=== PATIENT | female | born 1940 | race Caucasian/White ===

== ENCOUNTER → 2018-06-09 | Outpatient (CLI) | payer MEDICARE, OTHER ==
[~2018-06-09] MED LIST: ADULT LOW DOSE81 MG PO; ATENOLOL 100MG100 M2 PO; ATENOLOL 50 MG50 M1 PO; BYETTA PEN 51 PENIN1 SQ; CELEBREX 200 M200 MG; CELEBREX 200 M200 MG PO; COLACE1 EAC1; DIOVAN320 MG PO; GLUCOPHAGE1000 MG PO; GLUCOPHAGE1000 MG SQ; HUMALOG100 UNIT/1 SQ; LANTUS SC; LANTUS SQ; LISINOPRIL-HCT1 EAC1 PO; MIRALAX255 GM; MULTIVITAMINS PO; NATEGLINIDE PO; NEURONTIN 300300 M1; OMEPRAZOLE20 M2 PO; OXYCONTIN10 M1; OXYIR5 MG; PRILOSEC 20 MG20 MG PO; REGLAN 10 MG TA10 MG; SIMVASTATIN40 MG PO; TRAMADOL 50 MG50 MG; XARELTO10 MG; ZESTORETIC 20-1 EAC3 PO; ZOFRAN4 MG
[2018-06-09 10:48] LABS: ABSOLUTE BASOPHILS 0.1 thou/uL (0.0-0.2); ABSOLUTE EOSINOPHILS 0.2 thou/uL (0.0-0.7); ABSOLUTE LYMPHOCYTES 2.3 thou/uL (0.8-5.3); ABSOLUTE NEUTROPHILS 8.3 thou/uL (1.6-8.1); BASOPHILS 0.9 %; EOSINOPHILS 1.3 %; HEMATOCRIT 37.1 % (37.0-47.0); HEMOGLOBIN 12.3 gm/dL (12.0-15.0); LYMPHOCYTES 19.2 %; MCH 28.2 pg (26.0-34.0); MCHC 33.3 g/dL (28.0-37.0); MCV 84.8 fL (80.0-100.0); MONOCYTES 8.3 %; NUCLEATED RBCS 0 /100WBC; PLATELET COUNT* 291 thou/uL (150-400); POLYS 70.3 %; RBC 4.37 mil/uL (4.20-5.00); RDW-CV 14.7 % (10.5-14.5); WBC 11.8 thou/uL (4.0-11.0)
[2018-06-09 11:08] LABS: ALBUMIN 3.8 g/dL (3.4-5.0); CALCIUM 9.1 mg/dL (8.5-10.1); CREATININE 1.3 mg/dL (0.6-1.3); DIRECT BILIRUBIN 0.2 mg/dL (<0.1-0.3); MAGNESIUM 1.2 mg/dL (1.8-2.4); TOTAL BILIRUBIN 0.4 mg/dL (<0.1-1.0)
== END ==
LOC: M.CT 10:24 → M.LAB 10:30 → M.CT 11:00
PROVIDERS: Internal Medicine
DX: K76.0 Fatty (change of) liver, not elsewhere classified (principal); I10 Essential (primary) hypertension; K21.9 Gastro-esophageal reflux disease without esophagitis; M47.816 Spondylosis without myelopathy or radiculopathy, lumbar region; M48.061 Spinal stenosis, lumbar region without neurogenic claudication; E11.9 Type 2 diabetes mellitus without complications; Z90.49 Acquired absence of other specified parts of digestive tract; Z68.35 Body mass index [BMI] 35.0-35.9, adult

== ENCOUNTER → 2018-09-05 | Outpatient (CLI) | payer MEDICARE, OTHER | LOC: M.RAD 10:13 | DX: Z12.31 Encounter for screening mammogram for malignant neoplasm of breast (principal) ==

== ENCOUNTER → 2019-08-28 | Outpatient (CLI) | payer MEDICARE, OTHER | LOC: M.RAD 13:19 | DX: Z12.31 Encounter for screening mammogram for malignant neoplasm of breast (principal) ==

== ENCOUNTER 2020-05-14 09:53 | Inpatient (IN) | payer OTHER ==
[~2020-05-14] VITALS: Ht 162.6 cm; Wt 88.0 kg
[~2020-05-14 09:53] MED LIST changes: -CELEBREX 200 M200 MG; -CELEBREX 200 M200 MG PO; -NEURONTIN 300300 M1; -REGLAN 10 MG TA10 MG; +REGLAN 10 MG TA10 MG PO
[2020-05-14 10:00] VITALS: BP 207/80
[2020-05-14] MEDS ORDERED: PROTONIX40 M2 PO (10:07)
[2020-05-14] MEDS ORDERED: METFORMIN HCL500 MG PO (10:07)
[2020-05-14] MEDS ORDERED: LANTUS SUBQ (10:08)
[2020-05-14] MEDS ORDERED: TOPROL XL100 MG PO (10:08)
[2020-05-14] MEDS ORDERED: SIMVASTATIN40 MG PO (10:08)
[2020-05-14] MEDS ORDERED: SUPER THERAVIT1 EACH PO (10:09)
[2020-05-14] MEDS ORDERED: VITAMIN B12 PO (10:09)
[2020-05-14] MEDS ORDERED: PHENERGAN 25 MG25 MG PO (10:09)
[2020-05-14] MEDS ORDERED: MEMANTINE HCL10 GM PO (10:10)
[2020-05-14] MEDS ORDERED: LISINOPRIL-HCT1 EAC2 PO (10:10)
[2020-05-14 10:24] LABS: ABSOLUTE BASOPHILS 0.1 thou/uL (0.0-0.2); ABSOLUTE EOSINOPHILS 0.1 thou/uL (0.0-0.7); ABSOLUTE LYMPHOCYTES 1.9 thou/uL (0.8-5.3); ABSOLUTE MONOCYTES 0.8 thou/uL (0.0-1.2); ABSOLUTE NEUTROPHILS 7.8 thou/uL (1.6-8.1); BASOPHILS 0.8 %; EOSINOPHILS 1.2 %; HEMATOCRIT 37.7 % (37.0-47.0); HEMOGLOBIN 12.7 gm/dL (12.0-15.0); LYMPHOCYTES 17.9 %; MCH 28.4 pg (26.0-34.0); MCHC 33.8 g/dL (28.0-37.0); MCV 84.1 fL (80.0-100.0); MONOCYTES 7.8 %; MPV 10.1 fl. (7.2-11.1); NUCLEATED RBCS 0 /100WBC; PLATELET COUNT* 258 thou/uL (150-400); POLYS 72.3 %; RBC 4.49 mil/uL (4.20-5.00); WBC 10.7 thou/uL (4.0-11.0)
[2020-05-14 10:29] LABS: CALCIUM 9.5 mg/dL (8.5-10.1); CREATININE 1.4 mg/dL (0.6-1.3); POTASSIUM 3.9 mmol/L (3.5-5.1)
[2020-05-14 10:33] LABS: ALBUMIN 3.9 g/dL (3.4-5.0); TOTAL BILIRUBIN 0.4 mg/dL (<0.1-1.0); TOTAL PROTEIN 8.4 g/dL (6.4-8.2)
[2020-05-14] MEDS ORDERED: MACROBID 100 M100 MG PO (10:36)
[2020-05-14 10:39] LABS: APTT 28.7 Seconds (25.0-31.3); PROTIME 10.7 Seconds (9.20-11.50)
--- NOTE | 2020-05-14 11:20 | NUR ---
JUVENCIO NOTIFIED UPON PT RETURN FROM CT. PT CONNECTED TO MONITOR AND O2
[2020-05-14 11:44] LABS: URINE BILIRUBIN NEGATIVE (Negative); URINE BLOOD NEGATIVE (Negative); URINE CLARITY CLEAR; URINE COLOR YELLOW; URINE GLUCOSE-RANDOM NEGATIVE (Negative); URINE KETONES NEGATIVE (Negative); URINE LEUKOCYTES-REFLEX TRACE (Negative); URINE NITRITE-REFLEX NEGATIVE (Negative); URINE PROTEIN TRACE (Negative); URINE SPECIFIC GRAVITY 1.015 (1.005-1.030); URINE UROBILINOGEN 0.2 E.U./dl (0.2-1.0)
[2020-05-14 11:50] LABS: SQUAMOUS >10 Many /LPF (0-3)
[2020-05-14 11:51] LABS: BACTERIA-REFLEX 1-9 Few /HPF (None Seen); CASTS None Seen /LPF (None Seen); CRYSTALS None Seen /LPF (None Seen); MUCUS 0-3 Light strn/LPF (None Seen); URINE RBC None Seen /HPF (0-2); URINE WBC-REFLEX 0-5 Rare /HPF (0-5)
--- NOTE | 2020-05-14 12:52 | NUR ---
PT GIVEN LUNCH TRAY WITH PERMISSION FROM DR. STEELE
[2020-05-14 13:47] LABS: CHOLESTEROL 233 mg/dL (<200); HDL CHOLESTEROL 46 mg/dL (>40); LDL CHOLESTEROL 159 mg/dL (<100); SERUM ASSESSMENT Clear; TC:HDL 5.1 Ratio (Not establshd); TRIGLYCERIDE 142 mg/dL (<150); VLDL 28 mg/dL (<40)
--- NOTE | 2020-05-14 13:54 | EKG ---
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1940 Requested By: Raman Martinez Order Number: [id number] MD: Arian Arizmendi Measurements Intervals [place] Rate: 70 P: 20 VA: 206 QRS: 1 QRSD: 108 T: 44 QT: 409 QTc: 442 Interpretive Statements Sinus rhythm Probable left ventricular hypertrophy Anterior Q waves, possibly due to LVH Artifact in lead(s) I,III,aVR,aVL,aVF and baseline wander in lead(s) II,aVR Compared to ECG 01/15/2015 13:46:03 Left ventricular hypertrophy now present Q waves now present Electronically Signed On 05-14-2020 13:54:07 CDT by Arian Arizmendi [email or web address] <ELECTRONICALLY SIGNED> By: Arian Arizmendi MD, [facility] 05/14/20 1354 1005 1005 Arian Arizmendi MD, [facility] /EPI
[2020-05-14 14:27] VITALS: BP 147/75
[2020-05-14 14:45] VITALS: BP 190/79
[2020-05-14 15:00] VITALS: BP 150/92
--- NOTE | 2020-05-14 15:00 | NUR ---
PT TO ROOM 207 VIA CART. PT UNABLE TO FOLLOW COMMANDS. PT DOES NOT ROUTINELY ANSWER YES AND NO QUESTIONS AND WILL RESPOND TO QUESTIONS WITH INAPPROPRIATE ANSWERS. AT BS. FALL PRECAUTIONS IN PLACE. BED ALARM ON. MRI RESULTS DISCUSSED WITH DR STOCK. ORDERS RECEIVED.
[2020-05-14] MEDS ORDERED: NAMENDA 10 MG T10 MG PO (15:56)
--- NOTE | 2020-05-14 17:26 | 2DMMODE ---
[place] [address] 2 D/M-MODE ECHOCARDIOGRAM Name: CHANTELLE BASSETT Room: [address] IN .Sally.#: [id number] Admission: 05/14/20 Attend Phys: Rosa La, Discharge: Date of : 38 Date of Service: 05/14/20 1725 Report #: [id number] THIS REPORT FOR: cc: Arian Huggins MD, David L. MD Blick, David R. MD [facility] ~ APPROVED REPORT Study performed: 05/14/2020 16:30:41 EXAM: Comprehensive 2D, Doppler, and color-flow Echocardiogram Patient Location: In-Patient Room #: 207 Status: routine BSA: 1.93 HR: 69 bpm BP: 152/60 mmHg Rhythm: NSR Other Information Study Quality: Good Indications CVA/TIA Echo Enhancing Agent Indication: Rule out Shunt Agent(s) / Amount(s) Used: Agitated Saline 10 cc 2D Dimensions IVSd: 12.28 (7-11mm) LVOT Diam: 20.00 (18-24mm) LVDd: 42.37 mm PWd: 9.54 (7-11mm) Ascending Ao: 34.07 (22-36mm) LVDs: 28.76 (25-40mm) Aortic Root: 29.60 mm Volumes Left Atrial Volume (Systole) LA ESV Index: 31.20 mL/m2 Aortic Valve AoV Peak Florentino.: 1.84 m/s AO Peak Gr.: 13.58 mmHg LVOT Max P.84 mmHg AO Mean Gr.: 7.28 mmHg LVOT Mean P.24 [place] [address] 2 D/M-MODE ECHOCARDIOGRAM Name: CHANTELLE BASSETT Room: [address] IN .R.#: [id number] Admission: 05/14/20 Attend Phys: Rosa La, Discharge: Date of : 38 Date of Service: 05/14/20 1725 Report #: [id number] LVOT Max V: 1.10 m/s AO V2 VTI: 36.88 cm LVOT Mean V: 0.69 m/s BC (VTI): 2.08 cm2 LVOT V1 VTI: 24.47 cm Mitral Valve E/A Ratio: 0.74 MV Decel. Time: 329.44 ms MV E Max Florentino.: 0.74 m/s MV PHT: 95.54 ms MVA (PHT): 2.30 cm2 TDI E/Lateral E': 10.57 E/Medial E': 6.73 Medial E' Florentino.: 0.11 m/s Lateral E' Florentino.: 0.07 m/s Pulmonary Valve PV Peak Florentino.: 0.99 m/s PV Peak Gr.: 3.92 mmHg Left Ventricle The left ventricle is normal size. There is normal LV segmental wall motion. There is normal left ventricular wall thickness. Left ventricular systolic function is normal. The left ventricular ejection fraction is within the normal range. LVEF is 55-60%. Grade I - abnormal relaxation pattern. Right Ventricle The right ventricle is normal size. The right ventricular systolic function is normal. Atria Left atrium is mildly dilated. The interatrial septum is intact with no evidence for an atrial septal defect. The right atrium size is normal. Aortic Valve Mild aortic valve sclerosis. No aortic regurgitation is present. There is no aortic valvular stenosis. Mitral Valve There is mitral annular calcification. Trace mitral regurgitation. No evidence of mitral valve stenosis. Tricuspid Valve The tricuspid valve is normal in structure. [place] [address] 2 D/M-MODE ECHOCARDIOGRAM Name: CHANTELLE BASSTET [place] Room: [address] IN [facility]#: [id number] Admission: 05/14/20 Attend Phys: Rosa La, Discharge: Date of : 38 Date of Service: 05/14/20 1725 Report #: [id number] Pulmonic Valve The pulmonary valve is normal in structure. There is no pulmonic valvular regurgitation. Great Vessels The aortic root is normal in size. IVC is normal in size and collapses >50% with inspiration. Pericardium There is no pericardial effusion. <Conclusion> LVEF is 55-60%. The interatrial septum is intact with no evidence for an atrial septal defect. <ELECTRONICALLY SIGNED> By: Arian Arizmendi MD, [facility] 05/14/20 1725 1725 172 Arian Arizmendi MD, FACC /INF
[2020-05-14 20:00] VITALS: BP 146/61; BP 187/78
--- NOTE | 2020-05-14 20:00 | CON ---
[address] [address] CONSULTATION Name: SERJIOCHANTELLE J Room: [address] ADM IN M.R.#: [id number] Admission: 05/14/20 Attend Phys: Rosa La MD Discharge: Date of : 38 Report #: [id number] THIS REPORT FOR: //name// cc: Arian Huggins MD, David L. MD ~ THIS REPORT FOR: //name// CC: Arian La DATE OF SERVICE: 05/14/2020 HISTORY OF PRESENT ILLNESS: This is an 79-year-old female patient whose consultation was kindly requested by Dr. La. I called Dr. La and I talked to Dr. La. At first, we were not able to reach the patient's and the daughter, but subsequently we were able to reach the patient's and daughter. Initially, history was not clear, but subsequently it became pretty clear after talking to the . Initially, the history was that the patient's deficit is fluctuating. After talking to the in detail, it looks like the patient's speech was slurred when she woke up yesterday. She fell down, but apparently did not hit her head. Whether she fell down for her weakness on the right side is not clear. She never returned to her baseline and she had a stepwise progression of her speech difficulty as well as weakness on the right side. In between, she may have shown some improvement, but the is pretty clear that she never came to the baseline and never was like she was before. I talked to Dr. La and I get the similar history from her that she may have fluctuated, but she never came to the baseline, but in general, she has progressed and that is the reason they came to the hospital. REVIEW OF SYSTEMS: Positive for hypertension. The patient does not know anything. The indicated that he takes her blood pressure on a regular basis and is normal, but looks like she is on the antihypertensive which the was not aware that they were antihypertensive. She did have a knee replacement. At one time, she was on Xarelto according to the record, does not know why and for how long. She has no history of atrial fibrillation. She has a history of diabetes and hypertension. This is all the 14-point review of systems I can get. PAST MEDICAL HISTORY: Negative for any stroke. FAMILY HISTORY: Negative for any early age stroke. SOCIAL HISTORY: She lives with her . She does have dementia. She has been prescribed Namenda. How bad her dementia is, is not clear. PHYSICAL EXAMINATION: [place] [address] CONSULTATION Name: CHANTELLE BASSETT Room: [address] IN M.R.#: [id number] Admission: 05/14/20 Attend Phys: Rosa La MD Discharge: Date of : 38 Report #: [id number] NEUROLOGIC: On my examination, she is alert. She is responsive, but she has no reasonable speech output. When I asked her what month it is, she gave some garbled reply. When I asked in what hospital she is, she is unable to tell. She did not follow the command on persistent basis, but she did follow some commands. I could not tell about hemianopsia or good facial palsy, but she is weak in the right upper and right lower extremities, more so in the right lower extremity than the right upper extremity. I could not do the position sense. She did not cooperate with the fundus examination. CARDIAC: Shows no atrial fibrillation. LUNGS: No respiratory difficulty was noticed. 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 Extensive evaluation was done to see if anything can be done in this patient. Nothing unfortunately can be done in this patient. Symptom was noticed when she woke up yesterday morning. So, the time of onset is the night before, which is getting closer to 48 hours. Therefore, she is not a TPA candidate, neither in 3-hour window nor in 4-1/2 hour window. She is not even candidate for 9-hour window even if we can demonstrate penumbra because it is more than 9 hours. She does have low GFR, so I did not pursue with CT angiogram. Her MRA is normal. Therefore, she is not any thrombectomy candidate. I got a carotid Doppler done, which is also not showing any thrombus, so she is not a candidate there either for any thrombectomy. Unfortunately, her deficit is very dense. Because of her underlying dementia and the age of 79, I do not expect good things in this patient. These patients sometimes can become worse before they become better. Sometimes they become completely paralyzed on the right side before this starts showing any improvement. We just have to wait and see how she does. I am going to give her some more fluids. We are going to start her on deep venous thrombosis prophylaxis, Lovenox, and I will get an MRV to make sure it is not a venous stroke, but it does not look like. It just looks like multiple strokes in the left subcortical area on my review of the images. More than 50 minutes of time was spent taking care of this patient today and majority of that time was spent counseling and coordinating. <ELECTRONICALLY SIGNED> By: Adiel Dickinson MD 05/14/201999 1857 1922Plorri Dickinson MD /nt
--- NOTE | 2020-05-14 20:30 | NUR ---
RECEIVED REPORT AND ASSUMED CARE OF PT. PT TAKEN PER BED TO RADIOLOGY FOR MRA AND RETURNED. ASSESSMENT COMPLETED AFTER THIS. PT ALERT, ANSWERS BUT WITH GARBLED SPEECH, ABLE TO UNDERSTAND VERY FEW WORDS. NOT ABLE TO FOLLOW DIRECTIONS. DIFFICULTY IN DOING NIH DUE TO UNDERLYING DEMENTIA. RT FACIAL DROOP, HAVING WORD SALAD WITH GARBLED SPEECH, RT ARM FLACCID, RT LEG VERY WEAK. NIH SCORE 17. TELEMETRY ON SHOWING SR. WILL CONT TO MONITOR AND ASSIST NEEDED.
--- NOTE | 2020-05-14 23:00 | NUR ---
PT ABLE TO SWALLOW WATER WITHOUT COUGHING OR CHOKING. HOB ELEVATED. HS MEDS GIVEN WITHOUT DIFFICULTY. UP WITH MAX ASSIST OF 2 FOR TRANSFER TO BSC. UNABLE TO INTELLIGENCE CONSULTANT RT LEG AND MOVE IT. WAS INCONT SO ONLY VOIDED SM AMT.
[2020-05-15] VITALS: BP 201/87
[2020-05-15 02:06] LABS: GLYCOHEMOGLOBIN (HGB A1C) 8.5 % (4.8-5.6)
[2020-05-15 04:00] VITALS: BP 149/58
--- NOTE | 2020-05-15 06:30 | NUR ---
SLEPT ALL NIGHT. REPOSITIONED Q 2HR. NO CHANGE IN ASSESSMENT. RT SIDE REMAINS FLACCID WITH RT FACIAL DROOP. NO DIFFICULTY WITH SWALLOWING. INCONT OF URINE. TELEMETRY CONT TO SHOW SR. HS GOALS OF REST AND SAFETY ACHIEVED. HOURLY ROUNDING OBSERVED.
[2020-05-15 08:00] VITALS: BP 152/61
[2020-05-15] MEDS ORDERED: EXELON1 EAC1 TRANSDERM (10:11)
[2020-05-15 12:03] VITALS: BP 200/79
--- NOTE | 2020-05-15 13:24 | NUR ---
CM spoke with Pt's in room, Pt admitted with CVA. Pt is normally independent. Pt has a walker and cane at home that she can use as needed. Hx of HH post knee replacement, does not remember the name of the agency. No hx of SNF. [facility] consulted and following, PT recommending ARU. Per , between him and his family, they can provide 24 hour care for Pt post ARU if needed. Granddtr is an OT. Following.
[2020-05-15 17:19] VITALS: BP 126/75
--- NOTE | 2020-05-15 18:31 | NUR ---
RADHANET RESTING IN BED. UP WITH ASSIST X2 AND RIGHT SIDE FLACCID. AOX4. SLOW TO RESPOND. SHE HAS BEEN TIRED TODAY BUT EASILY ARROUSABLE. VSS. AWAITING AUTH FOR ACUTE REHAB PLACEMNT. HOURLY ROUJDING COMPLETED FOR PATIENT SAFETY.
[2020-05-15 20:00] VITALS: BP 182/73
[2020-05-16] VITALS: BP 173/76
[2020-05-16 04:00] VITALS: BP 180/69
[2020-05-16 04:43] LABS: HEMATOCRIT 34.9 % (37.0-47.0); HEMOGLOBIN 11.5 gm/dL (12.0-15.0); MCH 27.8 pg (26.0-34.0); MCHC 33.1 g/dL (28.0-37.0); MCV 84.1 fL (80.0-100.0); MPV 9.5 fl. (7.2-11.1); RBC 4.15 mil/uL (4.20-5.00); RDW-CV 14.9 % (10.5-14.5); WBC 11.4 thou/uL (4.0-11.0)
[2020-05-16 05:15] LABS: ALBUMIN 3.5 g/dL (3.4-5.0); CALCIUM 8.9 mg/dL (8.5-10.1); CREATININE 1.3 mg/dL (0.6-1.3); MAGNESIUM 1.4 mg/dL (1.8-2.4); POTASSIUM 3.2 mmol/L (3.5-5.1); TOTAL BILIRUBIN 0.5 mg/dL (<0.1-1.0); TOTAL PROTEIN 7.6 g/dL (6.4-8.2)
--- NOTE | 2020-05-16 05:31 | NUR ---
PT SLEPT ON AND OFF THIS SHIFT. ASSESSMENT DOCUMENTED. MEDS GIVEN PER E-DEC. IV PATENT. NO REPORTS OF PAIN THIS SHIFT. PT INCONTINENT THROUGH NIGHT. [facility] DOCUMENTED. FALL PRECAUTIONS IN PLACE. WILL CONTINUE WITH PLAN OF CARE.
[2020-05-16 08:00] VITALS: BP 165/66
[2020-05-16] MEDS ORDERED: CLOPIDOGREL75 MG PO (09:34)
[2020-05-16] MEDS ORDERED: LIPITOR 40 MG T40 M1 PO (09:35)
[2020-05-16] MEDS ORDERED: LISINOPRIL20 MG PO (09:35)
[2020-05-16] MEDS ORDERED: HUMALOG100 UNIT/1 SUBQ (09:35)
[2020-05-16] MEDS ORDERED: HYDROCHLOROTHIA25 M1 PO (09:35)
[2020-05-16] MEDS ORDERED: MACROBID 100 M100 MG PO (09:35)
--- NOTE | 2020-05-16 11:49 | NUR ---
Pt medically stable to dc to ARU today, waiting on insurance auth.
[2020-05-16 12:00] VITALS: BP 161/80
[2020-05-16 16:00] VITALS: BP 150/67
[2020-05-16 20:35] VITALS: BP 146/68
[2020-05-17] VITALS: BP 147/68
[2020-05-17 04:00] VITALS: BP 166/63
--- NOTE | 2020-05-17 05:15 | NUR ---
PT SLEPT ON AND OFF THIS SHIFT. AO TO PERSON, PLACE. APHASIA. HS ACCUCHECK, INSULIN GIVEN WITH SNACK. TAKING PILLS WHOLE WITH APPLESAUCE. R SIDE FLACCID. NIH SCALE CHARTED, SEE NOTES. INCONTINENT BOWEL AND BLADDER OVERNIGHT, PATRICIO CARE GIVEN. PT TURNED AND REPOSITIONED A ORDERED. [facility]. FRANCOISE CELAYA IV.
[2020-05-17 08:27] LABS: MAGNESIUM 1.5 mg/dL (1.8-2.4); POTASSIUM 3.7 mmol/L (3.5-5.1)
[2020-05-17 08:30] VITALS: BP 153/72
[2020-05-17 12:04] VITALS: BP 135/60
[2020-05-17 16:08] VITALS: BP 151/64
[2020-05-17 20:00] VITALS: BP 157/71
[2020-05-18] VITALS: BP 148/59
[2020-05-18 03:55] VITALS: BP 153/71
--- NOTE | 2020-05-18 05:22 | NUR ---
ASSUMED CARE OF PT AFTER REPORT AT 1930. PT ALERT & AWAKE. APHASIA NOTED. ABLE TO ANSWER YES/NO QUESTIONS. VSS. PHYSICAL ASSESSMENT COMPLETED AND CHARTED. PT ON RA. PT TRACING SR ON TELE. PT WITH EPISODE OF INCONTINENT BLADDER. PT TURNED TO SIDES. NIH CHARTED. FALL PRECAUTIONS IN PLACE. CALL LIGHT WITHIN REACH.
[2020-05-18 08:00] VITALS: BP 144/68
[2020-05-18 12:00] VITALS: BP 156/71
[2020-05-18 16:00] VITALS: BP 135/70
--- NOTE | 2020-05-18 17:53 | NUR ---
NO NEW CHANGES FROM MORNING ASSESSMENT. PT MORE ALERT AND ABLE TO ANSWER QUESTIONS BETTER. CAN FORM A SMALL SENTENCE. HOURLY ROUNDING PERFORMED. MEDICATION PER DEC. HEART MONITOR INTACT. CONTINUED RIGHT SIDED FLACCID. VISITED DURING SHIFT. NO PAIN REPORTED. GRIMMACES WHEN MOVING PATIENT. CALL LIGHT WITHIN REACH. WILL CONTINUE TO MONITOR.
[2020-05-18 20:00] VITALS: BP 140/59
[2020-05-19] VITALS: BP 126/56
[2020-05-19 04:00] VITALS: BP 144/69
[2020-05-19 05:06] LABS: HEMATOCRIT 34.1 % (37.0-47.0); HEMOGLOBIN 11.9 gm/dL (12.0-15.0); MCH 29.2 pg (26.0-34.0); MCV 83.3 fL (80.0-100.0); MPV 9.9 fl. (7.2-11.1); RBC 4.09 mil/uL (4.20-5.00); RDW-CV 15.7 % (10.5-14.5); WBC 12.3 thou/uL (4.0-11.0)
[2020-05-19 05:36] LABS: ALBUMIN 3.1 g/dL (3.4-5.0); CALCIUM 8.9 mg/dL (8.5-10.1); CREATININE 1.5 mg/dL (0.6-1.3); MAGNESIUM 1.8 mg/dL (1.8-2.4); POTASSIUM 3.3 mmol/L (3.5-5.1); TOTAL BILIRUBIN 0.8 mg/dL (<0.1-1.0)
--- NOTE | 2020-05-19 05:57 | NUR ---
ASSUMED CARE OF PT AFTER REPORT AT 1930. PT ALERT & AWAKE. APHASIE NOTED. ABLE TO ANSWER YES/NO QUESTIONS. ABLE TO FOLLOW SIMPLE COMMANDS. PT ON RA. PT TRACING SR ON TELE. PT TURNED TO SIDES. PT WITH EPISODES INCONTINENT BLADDER. NIH CHARTED. PT ABLE TO SLEEP WELL ON BED. POTASSIUM 3.3 IN AM. ELECTROLYTE PROTOCOL IN PLACE. FALL PRECAUTIONS IN PLACE.
[2020-05-19 08:00] VITALS: BP 147/72
--- NOTE | 2020-05-19 08:49 | NUR ---
ASSUMED PT. CARE AND RECEIVED REPORT AT 0730. PT ALERT, ANSWER YES/NO QUESTIONS. VSS, MONITOR ON TRACING SR. PT. DENIES CURRENT PAIN/SOB. FULL ASSESSMENT COMPLETED WITH NO ACUTE CHANGES NOTED. CALL LIGHT IN REACH, WILL CONTINUE WITH PLAN OF CARE.
[2020-05-19] MEDS ORDERED: ASA81BEC PO (11:06)
[2020-05-19 12:33] VITALS: BP 130/58
[2020-05-19] MEDS ORDERED: CELEBREX 200 M200 MG PO ×2 (13:21→13:22)
[2020-05-19] MEDS ORDERED: NEURONTIN 300M300 M2 PO (13:22)
[2020-05-19 13:51] VITALS: BP 130/58
--- NOTE | 2020-05-19 14:33 | NUR ---
DC ORDERS RECIEVED, PT. APPROVED FOR REHAB. PT SPOUSE GIVEN DC INSTRUCTIONS. REPORT CALLED TO [facility] IN [facility]. PT. TRANSPORTED VIA BED.
== END 2020-05-19 14:30 | DRG 64 ==
LOC: M.ERS 09:53 → M.TBA-ER 12:29 → M.2W 14:25
PROVIDERS: Family Medicine; Psychiatry & Neurology Neuromuscular Medicine; ADMIT Internal Medicine; ATTEND Internal Medicine
DX: I63.412 Cerebral infarction due to embolism of left middle cerebral artery (principal); G93.41 Metabolic encephalopathy; N39.0 Urinary tract infection, site not specified; G81.91 Hemiplegia, unspecified affecting right dominant side; R47.81 Slurred speech; I10 Essential (primary) hypertension; I16.0 Hypertensive urgency; B96.89 Other specified bacterial agents as the cause of diseases classified elsewhere; R47.01 Aphasia; E78.5 Hyperlipidemia, unspecified; E11.9 Type 2 diabetes mellitus without complications; Z96.653 Presence of artificial knee joint, bilateral; Z79.899 Other long term (current) drug therapy; Z79.84 Long term (current) use of oral hypoglycemic drugs; Z79.4 Long term (current) use of insulin; Z88.8 Allergy status to other drugs, medicaments and biological substances; Z03.818 Encounter for observation for suspected exposure to other biological agents ruled out

== ENCOUNTER 2020-05-19 12:26 | Inpatient (IN) | payer OTHER ==
[~2020-05-19] VITALS: Ht 157.5 cm; Wt 84.7 kg
[~2020-05-19 12:26] MED LIST changes: +ASA81BEC PO; +CLOPIDOGREL75 MG PO; +EXELON1 EAC1 TRANSDERM; +HUMALOG100 UNIT/1 SUBQ; +HYDROCHLOROTHIA25 M1 PO; +LANTUS SUBQ; +LIPITOR 40 MG T40 M1 PO; +LISINOPRIL-HCT1 EAC2 PO; +LISINOPRIL20 MG PO; +MACROBID 100 M100 MG PO; +MEMANTINE HCL10 GM PO; +METFORMIN HCL500 MG PO; +NAMENDA 10 MG T10 MG PO; +PHENERGAN 25 MG25 MG PO; +PROTONIX40 M2 PO; +SUPER THERAVIT1 EACH PO; +TOPROL XL100 MG PO; +VITAMIN B12 PO
[2020-05-19] MEDS ORDERED: CELEBREX 200 M200 MG PO ×2 (13:21→13:22)
[2020-05-19] MEDS ORDERED: NEURONTIN 300M300 M2 PO (13:22)
[2020-05-19 15:12] VITALS: BP 148/69
[2020-05-19 21:00] VITALS: BP 118/62
[2020-05-20 03:53] LABS: HEMATOCRIT 35.2 % (37.0-47.0); HEMOGLOBIN 11.7 gm/dL (12.0-15.0); MCH 27.9 pg (26.0-34.0); MCHC 33.4 g/dL (28.0-37.0); MCV 83.6 fL (80.0-100.0); MPV 9.3 fl. (7.2-11.1); RBC 4.21 mil/uL (4.20-5.00); RDW-CV 15.4 % (10.5-14.5); WBC 11.8 thou/uL (4.0-11.0)
[2020-05-20 04:11] LABS: CREATININE 1.8 mg/dL (0.6-1.3)
[2020-05-20 04:21] LABS: POTASSIUM 4.3 mmol/L (3.5-5.1)
[2020-05-20 08:48] VITALS: BP 115/58
[2020-05-20 19:00] VITALS: BP 99/48
[2020-05-21 06:38] VITALS: BP 111/55
[2020-05-21 08:47] VITALS: BP 117/59
[2020-05-21 09:13] LABS: ABSOLUTE BASOPHILS 0.1 thou/uL (0.0-0.2); ABSOLUTE EOSINOPHILS 0.2 thou/uL (0.0-0.7); ABSOLUTE LYMPHOCYTES 2.3 thou/uL (0.8-5.3); ABSOLUTE NEUTROPHILS 8.1 thou/uL (1.6-8.1); BASOPHILS 0.5 %; HEMATOCRIT 33.5 % (37.0-47.0); LYMPHOCYTES 19.5 %; MCV 84.8 fL (80.0-100.0); MONOCYTES 8.8 %; MPV 9.4 fl. (7.2-11.1); NUCLEATED RBCS 0 /100WBC; PLATELET COUNT* 307 thou/uL (150-400); POLYS 69.2 %; RBC 3.94 mil/uL (4.20-5.00); RDW-CV 15.6 % (10.5-14.5); WBC 11.7 thou/uL (4.0-11.0)
[2020-05-21 09:27] LABS: CALCIUM 9.2 mg/dL (8.5-10.1); CREATININE 2.7 mg/dL (0.6-1.3); POTASSIUM 4.4 mmol/L (3.5-5.1)
[2020-05-21 20:19] VITALS: BP 105/47
[2020-05-22 08:00] VITALS: BP 114/47
[2020-05-22 08:25] LABS: ABSOLUTE EOSINOPHILS 0.2 thou/uL (0.0-0.7); ABSOLUTE LYMPHOCYTES 1.7 thou/uL (0.8-5.3); ABSOLUTE MONOCYTES 0.9 thou/uL (0.0-1.2); BASOPHILS 0.5 %; EOSINOPHILS 2.1 %; HEMATOCRIT 30.9 % (37.0-47.0); HEMOGLOBIN 10.2 gm/dL (12.0-15.0); LYMPHOCYTES 17.1 %; MCH 28.2 pg (26.0-34.0); MCHC 33.1 g/dL (28.0-37.0); MONOCYTES 8.9 %; MPV 9.7 fl. (7.2-11.1); NUCLEATED RBCS 0 /100WBC; PLATELET COUNT* 287 thou/uL (150-400); POLYS 71.4 %; RBC 3.63 mil/uL (4.20-5.00); RDW-CV 15.6 % (10.5-14.5); WBC 9.8 thou/uL (4.0-11.0)
[2020-05-22 08:42] LABS: ALBUMIN 2.5 g/dL (3.4-5.0); CALCIUM 8.5 mg/dL (8.5-10.1); CREATININE 2.2 mg/dL (0.6-1.3); POTASSIUM 4.1 mmol/L (3.5-5.1); TOTAL BILIRUBIN 0.4 mg/dL (<0.1-1.0); TOTAL PROTEIN 6.9 g/dL (6.4-8.2)
[2020-05-22 20:13] VITALS: BP 126/51
[2020-05-23 07:00] VITALS: BP 95/47
[2020-05-23 20:18] VITALS: BP 147/50
[2020-05-24 05:02] LABS: CALCIUM 9.5 mg/dL (8.5-10.1); CREATININE 1.6 mg/dL (0.6-1.3); MAGNESIUM 1.9 mg/dL (1.8-2.4)
[2020-05-24 07:00] VITALS: BP 113/37
[2020-05-24 20:00] VITALS: BP 129/64
[2020-05-25 07:30] VITALS: BP 110/49
[2020-05-25 19:00] VITALS: BP 135/57
[2020-05-26 04:35] LABS: HEMATOCRIT 33.4 % (37.0-47.0); HEMOGLOBIN 11.2 gm/dL (12.0-15.0); MCH 27.9 pg (26.0-34.0); MCHC 33.6 g/dL (28.0-37.0); MPV 8.9 fl. (7.2-11.1); RBC 4.02 mil/uL (4.20-5.00); RDW-CV 15.3 % (10.5-14.5); WBC 8.3 thou/uL (4.0-11.0)
[2020-05-26 04:58] LABS: CALCIUM 9.4 mg/dL (8.5-10.1); CREATININE 1.6 mg/dL (0.6-1.3); MAGNESIUM 1.7 mg/dL (1.8-2.4); POTASSIUM 4.3 mmol/L (3.5-5.1)
[2020-05-26 05:38] LABS: URINE BILIRUBIN NEGATIVE (Negative); URINE BLOOD 2+ (Negative); URINE CLARITY CLEAR; URINE COLOR YELLOW; URINE GLUCOSE-RANDOM NEGATIVE (Negative); URINE KETONES NEGATIVE (Negative); URINE PROTEIN NEGATIVE (Negative); URINE UROBILINOGEN 0.2 E.U./dl (0.2-1.0)
[2020-05-26 05:44] LABS: URINE LEUKOCYTES-REFLEX 3+ (Negative); URINE NITRITE-REFLEX POSITIVE (Negative)
[2020-05-26 05:53] LABS: SQUAMOUS 0-3 Few /LPF (0-3)
[2020-05-26 05:54] LABS: CASTS None Seen /LPF (None Seen); CRYSTALS None Seen /LPF (None Seen); MUCUS 0-3 Light strn/LPF (None Seen); URINE RBC 3-10 Few /HPF (0-2); URINE WBC-REFLEX >25 Many /HPF (0-5)
[2020-05-26 08:59] VITALS: BP 131/64
[2020-05-26 20:00] VITALS: BP 136/69
[2020-05-27 08:00] VITALS: BP 125/57
[2020-05-27 19:00] VITALS: BP 152/75
[2020-05-28 08:32] VITALS: BP 119/72
[2020-05-28 17:05] LABS: ALBUMIN 3.1 g/dL (3.4-5.0); CALCIUM 9.4 mg/dL (8.5-10.1); CREATININE 1.6 mg/dL (0.6-1.3); POTASSIUM 4.4 mmol/L (3.5-5.1); TOTAL BILIRUBIN 0.4 mg/dL (<0.1-1.0); TOTAL PROTEIN 7.8 g/dL (6.4-8.2)
[2020-05-28 19:40] VITALS: BP 148/76
[2020-05-29 08:00] VITALS: BP 137/67
[2020-05-29 20:25] VITALS: BP 141/64
[2020-05-30 08:39] VITALS: BP 124/61
[2020-05-30 18:46] LABS: URINE BILIRUBIN NEGATIVE (Negative); URINE BLOOD 2+ (Negative); URINE CLARITY SL CLOUDY; URINE COLOR YELLOW; URINE GLUCOSE-RANDOM NEGATIVE (Negative); URINE KETONES NEGATIVE (Negative); URINE LEUKOCYTES-REFLEX TRACE (Negative); URINE NITRITE-REFLEX NEGATIVE (Negative); URINE PROTEIN 1+ (Negative); URINE SPECIFIC GRAVITY 1.025 (1.005-1.030); URINE UROBILINOGEN 0.2 E.U./dl (0.2-1.0)
[2020-05-30 18:56] LABS: CRYSTALS None Seen /LPF (None Seen); HYALINE CASTS 0-3 Few /LPF (None Seen); MUCUS 0-3 Light strn/LPF (None Seen); SQUAMOUS 0-3 Few /LPF (0-3); URINE RBC 3-10 Few /HPF (0-2); URINE WBC-REFLEX 6-15 Few /HPF (0-5)
[2020-05-30 20:21] VITALS: BP 146/71
[2020-05-31 04:55] LABS: HEMATOCRIT 33.4 % (37.0-47.0); HEMOGLOBIN 11.4 gm/dL (12.0-15.0); MCH 28.6 pg (26.0-34.0); MCHC 34.3 g/dL (28.0-37.0); MCV 83.3 fL (80.0-100.0); MPV 9.5 fl. (7.2-11.1); RDW-CV 15.7 % (10.5-14.5); WBC 10.6 thou/uL (4.0-11.0)
[2020-05-31 05:11] LABS: CALCIUM 9.2 mg/dL (8.5-10.1); CREATININE 1.6 mg/dL (0.6-1.3); POTASSIUM 4.2 mmol/L (3.5-5.1)
[2020-05-31 08:00] VITALS: BP 121/68
[2020-05-31 09:40] VITALS: BP 121/68
[2020-05-31 20:22] VITALS: BP 146/66
[2020-06-01 09:50] VITALS: BP 124/66
[2020-06-01 19:54] VITALS: BP 108/59
[2020-06-02 07:00] VITALS: BP 109/55
[2020-06-02 20:50] VITALS: BP 130/74
[2020-06-03 08:00] VITALS: BP 115/55
[2020-06-03 21:00] VITALS: BP 151/84
[2020-06-04 00:06] VITALS: BP 130/73
[2020-06-04 04:15] LABS: CALCIUM 9.4 mg/dL (8.5-10.1); CREATININE 1.6 mg/dL (0.6-1.3)
[2020-06-04 08:00] VITALS: BP 155/72
[2020-06-04 14:19] LABS: URINE BILIRUBIN NEGATIVE (Negative); URINE BLOOD 3+ (Negative); URINE CLARITY SL CLOUDY; URINE COLOR YELLOW; URINE GLUCOSE-RANDOM 1+ (Negative); URINE KETONES TRACE (Negative); URINE LEUKOCYTES-REFLEX 1+ (Negative); URINE NITRITE-REFLEX NEGATIVE (Negative); URINE PROTEIN 1+ (Negative); URINE UROBILINOGEN 0.2 E.U./dl (0.2-1.0)
[2020-06-04 14:26] LABS: SQUAMOUS NONE SEEN /LPF (0-3)
[2020-06-04 14:27] LABS: BACTERIA-REFLEX None Seen /HPF (None Seen); URINE RBC 3-10 Few /HPF (0-2); URINE WBC-REFLEX >25 Many /HPF (0-5)
[2020-06-04 14:28] LABS: CASTS None Seen /LPF (None Seen); CRYSTALS None Seen /LPF (None Seen); MUCUS None Seen strn/LPF (None Seen)
[2020-06-04 14:29] LABS: YEAST-REFLEX Present (None Seen)
[2020-06-04 21:00] VITALS: BP 113/71
[2020-06-05 04:01] LABS: HEMATOCRIT 32.8 % (37.0-47.0); HEMOGLOBIN 11.2 gm/dL (12.0-15.0); MCH 28.3 pg (26.0-34.0); MCHC 34.1 g/dL (28.0-37.0); MCV 83.1 fL (80.0-100.0); MPV 9.5 fl. (7.2-11.1); RBC 3.94 mil/uL (4.20-5.00); WBC 8.9 thou/uL (4.0-11.0)
[2020-06-05 04:17] LABS: CREATININE 1.4 mg/dL (0.6-1.3)
[2020-06-05 08:00] VITALS: BP 132/95
[2020-06-05 19:30] VITALS: BP 122/59
[2020-06-06 08:00] VITALS: BP 115/56
[2020-06-06 20:18] VITALS: BP 140/96
[2020-06-07 08:30] VITALS: BP 120/68
[2020-06-07 20:26] VITALS: BP 129/64
[2020-06-08 19:00] VITALS: BP 130/64
[2020-06-09 07:58] VITALS: BP 119/72
[2020-06-09 11:08] LABS: HEMATOCRIT 35.7 % (37.0-47.0); HEMOGLOBIN 11.9 gm/dL (12.0-15.0); MCH 27.9 pg (26.0-34.0); MCHC 33.4 g/dL (28.0-37.0); MCV 83.6 fL (80.0-100.0); RBC 4.27 mil/uL (4.20-5.00); RDW-CV 15.8 % (10.5-14.5); WBC 6.8 thou/uL (4.0-11.0)
[2020-06-09 11:21] LABS: ALBUMIN 2.8 g/dL (3.4-5.0); CREATININE 1.9 mg/dL (0.6-1.3); POTASSIUM 4.3 mmol/L (3.5-5.1); TOTAL BILIRUBIN 0.5 mg/dL (<0.1-1.0); TOTAL PROTEIN 7.6 g/dL (6.4-8.2)
[2020-06-09 17:07] LABS: URINE BILIRUBIN NEGATIVE (Negative); URINE BLOOD NEGATIVE (Negative); URINE CLARITY CLEAR; URINE COLOR YELLOW; URINE GLUCOSE-RANDOM NEGATIVE (Negative); URINE KETONES NEGATIVE (Negative); URINE LEUKOCYTES-REFLEX NEGATIVE (Negative); URINE NITRITE-REFLEX NEGATIVE (Negative); URINE PROTEIN TRACE (Negative); URINE SPECIFIC GRAVITY 1.025 (1.005-1.030); URINE UROBILINOGEN 0.2 E.U./dl (0.2-1.0)
[2020-06-09 19:00] VITALS: BP 105/64
[2020-06-10 07:59] VITALS: BP 113/62
[2020-06-10 19:00] VITALS: BP 149/80
[2020-06-11 08:11] VITALS: BP 153/96
[2020-06-11 19:30] VITALS: BP 132/78
[2020-06-12] MEDS ORDERED: COLACE100 MG PO (05:35)
[2020-06-12 08:00] VITALS: BP 146/76
[2020-06-12] MEDS ORDERED: METOPROLOL SUCC25 M1 PO (11:43)
[2020-06-12 12:00] VITALS: BP 132/78
== END 2020-06-12 16:30 | DRG 56 ==
LOC: M.REH 12:26
PROVIDERS: Internal Medicine; Nurse Practitioner; ADMIT Physical Medicine & Rehabilitation; ATTEND Physical Medicine & Rehabilitation
DX: I69.351 Hemiplegia and hemiparesis following cerebral infarction affecting right dominant side (principal); G93.41 Metabolic encephalopathy; N17.0 Acute kidney failure with tubular necrosis; I63.412 Cerebral infarction due to embolism of left middle cerebral artery; N39.0 Urinary tract infection, site not specified; B37.89 Other sites of candidiasis; E46 Unspecified protein-calorie malnutrition; Z96.653 Presence of artificial knee joint, bilateral; R33.9 Retention of urine, unspecified; I16.0 Hypertensive urgency; N18.3 Chronic kidney disease, stage 3 (moderate); I95.2 Hypotension due to drugs; E11.649 Type 2 diabetes mellitus with hypoglycemia without coma; E11.22 Type 2 diabetes mellitus with diabetic chronic kidney disease; Z20.828 Contact with and (suspected) exposure to other viral communicable diseases; I12.9 Hypertensive chronic kidney disease with stage 1 through stage 4 chronic kidney disease, or unspecified chronic kidney disease; B96.1 Klebsiella pneumoniae [K. pneumoniae] as the cause of diseases classified elsewhere; E11.65 Type 2 diabetes mellitus with hyperglycemia; Z88.8 Allergy status to other drugs, medicaments and biological substances; Z68.34 Body mass index [BMI] 34.0-34.9, adult; Z82.49 Family history of ischemic heart disease and other diseases of the circulatory system; Z82.3 Family history of stroke; Z79.82 Long term (current) use of aspirin; Z79.899 Other long term (current) drug therapy

== ENCOUNTER 2020-06-17 03:06 | Inpatient (IN) | payer OTHER ==
[~2020-06-17] VITALS: Ht 162.6 cm; Wt 82.6 kg
--- NOTE | ~2020-06-17 | PROC ---
[address] [address] PROCEDURE REPORT Name: CHANTELLE BASSETT Room: [address] ADM IN M.R.#: [id number] Admission: 06/17/20 Attend Phys: Alcon [place] MD Discharge: Date of : 38 Report #: [id number] THIS REPORT FOR: //name// cc: FAM - No family physician/PCP FAM - No family physician/PCP ~ THIS REPORT FOR: //name// For GI report, please see the Provation report in Perceptive 7 content. By: 1404Medical Records Staff ANIBAL /COLETTE
--- NOTE | ~2020-06-17 | PROC ---
[address] [address] PROCEDURE REPORT Name: CHANTELLE BASSETT Room: [address] ADM IN M.R.#: [id number] Admission: 06/17/20 Attend Phys: Alcon [place] MD Discharge: Date of : 38 Report #: [id number] THIS REPORT FOR: //name// cc: FAM - No family physician/PCP FAM - No family physician/PCP ~ THIS REPORT FOR: //name// For GI report, please see the Provation report in Perceptive 7 content. By: [facility]9Medical Records Staff AIDA /COLETTE
--- NOTE | ~2020-06-17 | PROC ---
[address] [address] PROCEDURE REPORT Name: CHANTELLE BASSETT Room: [address] ADM IN M.R.#: [id number] Admission: 06/17/20 Attend Phys: Alcon [place] MD Discharge: Date of : 38 Report #: [id number] THIS REPORT FOR: //name// cc: FAM - No family physician/PCP FAM - No family physician/PCP ~ THIS REPORT FOR: //name// For GI report, please see the Provation report in Perceptive 7 content. By: 1407Medical Records Staff ANIBAL /COLETTE
--- NOTE | ~2020-06-17 | EMS ---
[place] [id number] EMS Patient Care Report Name: CHANTELLE BASSETT Room: [place] [address] ADM IN ..#: [id number] Admission: 06/17/20 Attend Phys: Alcon [place] MD Discharge: Date of : 38 Report #: [id number] THIS REPORT FOR: //name// Report Transmitted: 06/17/2020 03:14 EMS Care Summary [facility]ident [id number] @ 06/17/2020 01:58 Incident Location [address] Patient CHANTELLE BASSETT Female, 80 Years 1940 Patient Address [address] [place], [place] [id number] Patient History Other,Diabetes,Kidney/Renal Failure,Stroke/CVA,Alzheimer's, Patient Allergies Diltiazem, Patient Medications Exelon, Celebrex, Protonix, Clopidogrel, Glucophage, Other, Aspirin, Promethazine, Lantus, Namenda, Metoclopramide, Humalog, Neurontin, Toprol, Tylenol, Remeron, Lipitor, Chief Complaint GI Bleed Disposition Transported No Lights/Waite Dispatch Reason Abdominal Pain/Problems Transported To [facility] Narrative Dispatched: Med 1 was toned to [facility] for a patient with a GI bleed. Med 1 responded emergent. [address] [place] [address] EMS Patient Care Report Name: CHANTELLE BASSETT Room: [place] [address] ADM IN .R.#: [id number] Admission: 06/17/20 Attend Phys: Alcon [place] MD Discharge: Date of : 38 Report #: [id number] Chief Complaint/Condition: The patient was found laying in a hospital bed asleep. Staff stated that she had no complaints of pain but had been passing dark red clots with occasional bright red steady bleeding. The patient had right sided deficits from a stroke the week prior. History of Present Illness/Injury: According to staff, the patient was noted as having no bowel movements throughout the day (day prior to event). Dark blood clots were noted by staff followed by occasional steady bright red bleeding. Dr. Horne told staff to monitor the patient and administer milk of magnesia. When the patient's condition did not improve, the physician requested transport to [place] for further treatment/evaluation. Assessment: The patient was a female in her 80's, A/Ox4, GCS 14. Speech deficits noted from stroke. Airway patent, breathing clear, equal, and regular. CMS present with strong radial pulses. Skin pink, warm, and dry. Right sided weakness noted from stroke. See section for further. Reason for Ambulance: The patient had been experiencing a GI bleed for approximately 12 hours. Physician and family requested transport back to [place] for further assessment. Treatments: EKG/12 lead showing sinus with a LBBB. IV therapy established. See section for further. Summary: Med 1 arrived on scene and received report from staff. Vitals received along with paperwork. The patient was moved to the stretcher via sheet and placed in Med 1. Further assessment performed along with IV therapy. Transport initiated. Patient status monitored en route with patient noted as sleeping throughout most of transport. Report called into facility with no further orders. The patient was delivered to ED room 16 and sheet transferred to the bed. Report given to staff. Signatures obtained and paperwork gathered. Med 1 returned to [facility]. Initial Vitals @02:47P: 94,R: 20,BP: 114/71,GCS: 15,SpO2: 92,Revised Trauma: 12, @02:42P: 90,R: 18,GCS: 14,SpO2: 95, @PTAP: 93,R: 20,BP: 108/64,Pain: 0/10,GCS: 14,SpO2: 96,Revised Trauma: 12, @02:20R: 16,GCS: 14,Temp: 97.5F,Glucose: 113, @02:27P: 88,R: 16,BP: 114/65,Pain: 0/10,GCS: 14,Revised Trauma: 12, @02:32P: 91,R: 16,BP: 110/66,GCS: 14,SpO2: 92,Revised Trauma: 12, @02:57P: 90,R: 18,BP: 103/53,GCS: 14,SpO2: 93,Revised Trauma: 12, Assessments @02:08MENTAL:Time Oriented,Person Oriented,Event Oriented,Place Oriented,SKIN:HEENT:LUNG SOUNDS:ABDOMEN:PELVIS//GI:Rectal Bleeding,Incontinence,EXTREMITIES:Right Arm: Weakness,Right Leg: [facility] [address] [place] [address] EMS Patient Care Report Name: CHANTELLE BASSETT Room: M.170-16 ADM IN M.R.#: [id number] Admission: 06/17/20 Attend Phys: Alcon [place] MD Discharge: Date of : 38 Report #: [id number] Weakness,PULSE:Radial: 2+ Normal,NEURO:Slurred Speech,Weakness Right-Sided,@02:56MENTAL:Place Oriented,Event Oriented,Time Oriented,Person Oriented,SKIN:HEENT:LUNG SOUNDS:ABDOMEN:PELVIS//GI:Rectal Bleeding,Incontinence,EXTREMITIES:Right Arm: Weakness,Right Leg: Weakness,PULSE:Radial: 2+ Normal,NEURO:Slurred Speech,Weakness Right-Sided, Impression Gastrointestinal hemorrhage Procedures @02:08ALS AssessmentResponse: UnchangedSucceeded@02:24Saline Lock 10cc (20 ga) Site: Hand-LeftResponse: UnchangedSucceeded@02:2712-Lead ECGResponse: UnchangedSucceeded Timeline [facility] CONSULTANT,BP: 108/64 M,PULSE: 93,RR: 20 R,SPO2: 96 Ox,ETCO2: ,BG: ,PAIN: 0,GCS: 14, 01:57,Call Received 01:58,Dispatched 02:01,En Route 02:05,On Scene 02:08,At Patient 02:08,ALS Assessment,Response: UnchangedSucceeded, 02:20,BP: / M,PULSE: ,RR: 16 R,SPO2: Ox,ETCO2: ,B,PAIN: ,GCS: 14, 02:24,Saline Lock 10cc 20 ga Site: Hand-Left,Response: UnchangedSucceeded, 02:27,12-Lead ECG,Response: UnchangedSucceeded, 02:27,BP: 114/65 M,PULSE: 88,RR: 16 R,SPO2: Ox,ETCO2: ,BG: ,PAIN: 0,GCS: 14, 02:28,Depart Scene 02:32,BP: 110/66 M,PULSE: 91,RR: 16 R,SPO2: 92 Ox,ETCO2: ,BG: ,PAIN: ,GCS: 14, 02:42,BP: / M,PULSE: 90,RR: 18 R,SPO2: 95 Ox,ETCO2: ,BG: ,PAIN: ,GCS: 14, 02:47,BP: 114/71 M,PULSE: 94,RR: 20 R,SPO2: 92 Ox,ETCO2: ,BG: ,PAIN: ,GCS: 15, 02:57,BP: 103/53 M,PULSE: 90,RR: 18 R,SPO2: 93 Ox,ETCO2: ,BG: ,PAIN: ,GCS: 14, 03:03,At Destination 03:51,Call Closed Disclaimer v1.1 Copyright 2020 [place] Everywhere This EMS Care Summary contains data elements from the applicable legal record (which may be displayed differently). It is designed to provide pertinent information for the following purposes: continuity of care, clinical quality, and state data reporting. The complete legal record is available to ED staff and administrators of the receiving hospital in [employer]'s Patient Tracker. All data is provided "as is."
[~2020-06-17 03:06] MED LIST changes: +CELEBREX 200 M200 MG PO; +COLACE100 MG PO; +METOPROLOL SUCC25 M1 PO; +NEURONTIN 300M300 M2 PO
[2020-06-17 03:15] VITALS: BP 117/69
[2020-06-17] MEDS ORDERED: MILK OF MA400 MG/5 M PO (03:32)
[2020-06-17] MEDS ORDERED: REMERON15 M2 PO (03:32)
[2020-06-17 03:37] LABS: ABSOLUTE BASOPHILS 0.1 thou/uL (0.0-0.2); ABSOLUTE EOSINOPHILS 0.2 thou/uL (0.0-0.7); ABSOLUTE LYMPHOCYTES 1.9 thou/uL (0.8-5.3); ABSOLUTE MONOCYTES 1.1 thou/uL (0.0-1.2); ABSOLUTE NEUTROPHILS 9.9 thou/uL (1.6-8.1); EOSINOPHILS 1.2 %; HEMATOCRIT 33.5 % (37.0-47.0); LYMPHOCYTES 14.2 %; MCH 27.4 pg (26.0-34.0); MCHC 32.7 g/dL (28.0-37.0); MCV 83.8 fL (80.0-100.0); MONOCYTES 8.4 %; MPV 8.4 fl. (7.2-11.1); NUCLEATED RBCS 0 /100WBC; PLATELET COUNT* 380 thou/uL (150-400); POLYS 75.2 %; RDW-CV 16.4 % (10.5-14.5); WBC 13.2 thou/uL (4.0-11.0)
[2020-06-17 03:47] LABS: CALCIUM 8.9 mg/dL (8.5-10.1); POTASSIUM 4.8 mmol/L (3.5-5.1)
[2020-06-17 03:48] LABS: APTT 27.9 Seconds (25.0-31.3); INR 1.1; PROTIME 11.8 Seconds (9.20-11.50)
[2020-06-17 03:52] LABS: ALBUMIN 2.6 g/dL (3.4-5.0); TOTAL BILIRUBIN 0.6 mg/dL (<0.1-1.0); TOTAL PROTEIN 7.2 g/dL (6.4-8.2)
[2020-06-17 05:16] VITALS: BP 125/61
[2020-06-17 05:30] VITALS: BP 135/83
[2020-06-17 08:30] VITALS: BP 143/73
[2020-06-17] MEDS ORDERED: TYLENOL 8 HOUR650 MG PO (08:36)
--- NOTE | 2020-06-17 10:56 | EKG ---
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1940 Requested By: Raman Martinez Order Number: [id number] MD: Arian Arizmendi Measurements Intervals [place] Rate: 89 P: -4 [place]: 178 QRS: 2 QRSD: 115 T: 103 QT: 374 QTc: 456 Interpretive Statements Sinus rhythm nonspecific st segment changes Compared to ECG 05/14/2020 10:05:58 Left ventricular hypertrophy no longer present Q waves no longer present Electronically Signed On 06-17-2020 10:56:20 CDT by Arian Arizmendi [email or web address] <ELECTRONICALLY SIGNED> By: Arian Arizmendi MD, [facility] 06/17/20 1056 0319 0319 Arian Arizmendi MD, [facility] /EPI
[2020-06-17 16:34] LABS: HEMOGLOBIN 9.5 gm/dL (12.0-15.0)
[2020-06-17 17:31] VITALS: BP 120/65
[2020-06-17 20:00] VITALS: BP 97/61
[2020-06-18] VITALS (7 sets, daily range): BP systolic 99–144; BP diastolic 49–70
[2020-06-18 05:24] LABS: ABSOLUTE LYMPHOCYTES 1.6 thou/uL (0.8-5.3); ABSOLUTE MONOCYTES 1.2 thou/uL (0.0-1.2); ABSOLUTE NEUTROPHILS 11.6 thou/uL (1.6-8.1); BASOPHILS 0.2 %; HEMATOCRIT 21.8 % (37.0-47.0); LYMPHOCYTES 10.9 %; MCH 27.7 pg (26.0-34.0); MCHC 33.3 g/dL (28.0-37.0); MCV 83.3 fL (80.0-100.0); MONOCYTES 8.2 %; MPV 8.2 fl. (7.2-11.1); NUCLEATED RBCS 0 /100WBC; PLATELET COUNT* 317 thou/uL (150-400); POLYS 80.7 %; RBC 2.62 mil/uL (4.20-5.00); RDW-CV 15.9 % (10.5-14.5); WBC 14.4 thou/uL (4.0-11.0)
[2020-06-18 05:26] LABS: HEMOGLOBIN 7.3 gm/dL (12.0-15.0)
[2020-06-18 05:50] LABS: CALCIUM 7.9 mg/dL (8.5-10.1); CREATININE 1.7 mg/dL (0.6-1.3); POTASSIUM 3.6 mmol/L (3.5-5.1)
[2020-06-18 19:01] LABS: HEMATOCRIT 21.9 % (37.0-47.0); HEMOGLOBIN 7.4 gm/dL (12.0-15.0)
[2020-06-19] VITALS (7 sets, daily range): BP systolic 111–153; BP diastolic 44–84
[2020-06-19 04:56] LABS: ABSOLUTE BASOPHILS 0.1 thou/uL (0.0-0.2); ABSOLUTE EOSINOPHILS 0.1 thou/uL (0.0-0.7); ABSOLUTE LYMPHOCYTES 1.6 thou/uL (0.8-5.3); ABSOLUTE MONOCYTES 1.1 thou/uL (0.0-1.2); ABSOLUTE NEUTROPHILS 8.8 thou/uL (1.6-8.1); EOSINOPHILS 0.9 %; HEMATOCRIT 21.6 % (37.0-47.0); HEMOGLOBIN 7.4 gm/dL (12.0-15.0); LYMPHOCYTES 13.4 %; MCH 28.8 pg (26.0-34.0); MCHC 34.4 g/dL (28.0-37.0); MCV 83.6 fL (80.0-100.0); MONOCYTES 9.2 %; MPV 8.8 fl. (7.2-11.1); NUCLEATED RBCS 0 /100WBC; POLYS 75.5 %; RBC 2.58 mil/uL (4.20-5.00); WBC 11.7 thou/uL (4.0-11.0)
[2020-06-19 05:07] LABS: PLATELET COUNT* 216 thou/uL (150-400)
[2020-06-19 05:17] LABS: ALBUMIN 2.1 g/dL (3.4-5.0); CALCIUM 8.1 mg/dL (8.5-10.1); CREATININE 1.3 mg/dL (0.6-1.3); POTASSIUM 3.4 mmol/L (3.5-5.1); TOTAL BILIRUBIN 0.3 mg/dL (<0.1-1.0); TOTAL PROTEIN 5.6 g/dL (6.4-8.2)
--- NOTE | 2020-06-19 13:04 | EKG ---
[place] [address] ELECTROCARDIOGRAM REPORT Name: CHANTELLE BASSETT Room: [address] IN M.R.#: [id number] Admission: 06/17/20 Attend Phys: Alcon Julian, Discharge: Date of : 38 Date of Service: 06/18/202039 Report #: [id number] THIS REPORT FOR: //name// [facility] Test Date: 2020-06-18 Test Time: 20:40:04 Pat Name: CHANTELLE BASSETT Department: Room: [address] Gender: F [employer] Worker: [facility] : 1940 Requested By: Alcon Julian Order Number: [id number] Reading MD: Dequan Grace Measurements Intervals Mccarr Rate: 102 P: 51 CA: 202 QRS: -9 QRSD: 96 T: 171 QT: 364 QTc: 475 Interpretive Statements Sinus tachycardia Anteroseptal infarct, old, possible Abnormal T, consider ischemia, lateral leads Compared to ECG 06/17/2020 03:19:57 Myocardial infarct finding now present T-wave abnormality now present Possible ischemia now present Sinus rhythm no longer present Electronically Signed On 06-19-2020 13:04:28 CDT by Dequan Grace [email or web address] <ELECTRONICALLY SIGNED> By: Dequan Grace MD, FAC 06/19/20 1304 39 39 Dequan Grace MD, [facility] /EPI
[2020-06-19 16:03] LABS: HEMATOCRIT 24.1 % (37.0-47.0); HEMOGLOBIN 8.2 gm/dL (12.0-15.0)
[2020-06-20] VITALS: BP 158/49
[2020-06-20 04:00] VITALS: BP 143/63
[2020-06-20 06:03] LABS: HEMATOCRIT 19.5 % (37.0-47.0); HEMOGLOBIN 6.6 gm/dL (12.0-15.0)
[2020-06-20 06:27] LABS: ALBUMIN 1.9 g/dL (3.4-5.0); CALCIUM 7.6 mg/dL (8.5-10.1); CREATININE 1.2 mg/dL (0.6-1.3); TOTAL BILIRUBIN 0.4 mg/dL (<0.1-1.0); TOTAL PROTEIN 5.1 g/dL (6.4-8.2)
[2020-06-20 06:31] LABS: POTASSIUM 2.7 mmol/L (3.5-5.1)
[2020-06-20 08:00] VITALS: BP 162/72
--- NOTE | 2020-06-20 11:07 | PATH ---
[address] [address] PATHOLOGY RPT PROCEDURE Name: CHANTELLE BASSETT Room: [address] IN .R.#: [id number] Admission: 06/17/20 Date of : 38 Discharge: Report #: [id number] Path Case #: [id number] [facility] Accession Number: [id number] . 01 Material submitted: . stomach - GASTRIC BIOPSY-GASTRIC POLYP-GASTRITIS . 01 Clinician provided ICD-10: K92.2 . 01 Clinical history: . GASTROINTESTINAL HEMORRHAGE, UNSPECIFIED . 02 Diagnosis: Gastric biopsy: - Mild nonspecific chronic gastritis with suggestion of fundic gland polyp, negative for Heliobacter pylori organisms, granulomas and dysplasia/adenomatous change. (DREAD:shay; 06/19/2020) . Special stain: H. pylori immuno QMS 06/19/2020 1056 Local . 02 Electronically signed: . Lexa Thakkar MD, Pathologist NPI- [id number] . 01 Gross description: . The specimen is received in formalin, labeled "Chantelle Bassett, gastric biopsy" and consists of 3 fragments of gloria tissue measuring between 0.1 x 0.1 cm and 0.5 x 0.2 cm which are entirely submitted in A1. (SDY; 06/18/2020) SYU/SYU 06/18/2020 1135 Local . 02 Pathologist provided ICD-10: K29.50 . 02 CPT . 077667, [id number] Specimen Comment: A courtesy copy of this report has been sent to [phone] Specimen Comment: [phone] Specimen Comment: Report sent to / DR GERONIMO Performed at: [address] [id number] MD Ganesh Avelar MD Phone: [phone] Performed at: [address] [address] PATHOLOGY RPT PROCEDURE Name: CHANTELLE BASSETT Room: [address] IN [facility]#: [id number] Admission: 06/17/20 Date of : 38 Discharge: Report #: [id number] Path Case #: [id number] [facility] [place] [address] [id number] MD Lexa Thakkar MD Phone: [phone]
[2020-06-20 13:34] VITALS: BP 152/70
[2020-06-20 14:06] LABS: PCO2 VENOUS 42.8 mmHg (41.0-51.0); PO2 VENOUS 31.6 mmHg (35.0-45.0)
[2020-06-20 14:17] LABS: CALCIUM 7.7 mg/dL (8.5-10.1); MAGNESIUM 1.2 mg/dL (1.8-2.4); POTASSIUM 3.2 mmol/L (3.5-5.1)
[2020-06-20 15:05] LABS: APTT 26.4 Seconds (25.0-31.3); INR 1.3; PROTIME 13.4 Seconds (9.20-11.50)
[2020-06-20 16:00] VITALS: BP 154/58
[2020-06-20 19:30] VITALS: BP 163/71
[2020-06-20 20:26] LABS: HEMATOCRIT 24.3 % (37.0-47.0); HEMOGLOBIN 8.3 gm/dL (12.0-15.0)
[2020-06-21] VITALS: BP 126/69
[2020-06-21 01:22] LABS: URINE BILIRUBIN NEGATIVE (Negative); URINE BLOOD 2+ (Negative); URINE CLARITY CLEAR; URINE COLOR YELLOW; URINE GLUCOSE-RANDOM 1+ (Negative); URINE KETONES NEGATIVE (Negative); URINE LEUKOCYTES-REFLEX TRACE (Negative); URINE NITRITE-REFLEX NEGATIVE (Negative); URINE PROTEIN NEGATIVE (Negative); URINE UROBILINOGEN 0.2 E.U./dl (0.2-1.0)
[2020-06-21 01:40] LABS: CASTS None Seen /LPF (None Seen); MUCUS 0-3 Light strn/LPF (None Seen); SQUAMOUS 0-3 Few /LPF (0-3)
[2020-06-21 01:41] LABS: BACTERIA-REFLEX >30 Many /HPF (None Seen); URINE RBC 0-2 Rare /HPF (0-2)
[2020-06-21 01:42] LABS: CRYSTALS None Seen /LPF (None Seen); WBC CLUMPS Few (None Seen)
[2020-06-21 04:00] VITALS: BP 134/56
[2020-06-21 05:08] LABS: ABSOLUTE EOSINOPHILS 0.1 thou/uL (0.0-0.7); ABSOLUTE LYMPHOCYTES 1.6 thou/uL (0.8-5.3); ABSOLUTE MONOCYTES 0.6 thou/uL (0.0-1.2); ABSOLUTE NEUTROPHILS 4.7 thou/uL (1.6-8.1); BASOPHILS 0.4 %; HEMATOCRIT 22.8 % (37.0-47.0); HEMOGLOBIN 7.8 gm/dL (12.0-15.0); MCH 29.8 pg (26.0-34.0); MCHC 34.5 g/dL (28.0-37.0); MCV 86.6 fL (80.0-100.0); MONOCYTES 8.8 %; MPV 8.5 fl. (7.2-11.1); NUCLEATED RBCS 0 /100WBC; PLATELET COUNT* 204 thou/uL (150-400); POLYS 66.8 %; RBC 2.63 mil/uL (4.20-5.00); RDW-CV 16.4 % (10.5-14.5); WBC 7.1 thou/uL (4.0-11.0)
[2020-06-21 05:24] LABS: ALBUMIN 1.9 g/dL (3.4-5.0); CALCIUM 7.5 mg/dL (8.5-10.1); MAGNESIUM 1.7 mg/dL (1.8-2.4); PHOSPHORUS* 2.2 mg/dL (2.5-4.9)
[2020-06-21 08:00] VITALS: BP 166/57
[2020-06-21 12:36] VITALS: BP 154/71
[2020-06-21 17:48] VITALS: BP 140/72
[2020-06-21 20:00] VITALS: BP 110/84
[2020-06-22] VITALS: BP 149/71
[2020-06-22 04:00] VITALS: BP 141/56
[2020-06-22 08:09] VITALS: BP 117/72
[2020-06-22 08:58] LABS: HEMATOCRIT 23.5 % (37.0-47.0); HEMOGLOBIN 8.1 gm/dL (12.0-15.0); MCH 29.7 pg (26.0-34.0); MCHC 34.4 g/dL (28.0-37.0); MCV 86.2 fL (80.0-100.0); MPV 8.2 fl. (7.2-11.1); RBC 2.72 mil/uL (4.20-5.00); RDW-CV 17.1 % (10.5-14.5); WBC 7.2 thou/uL (4.0-11.0)
[2020-06-22 09:06] LABS: CALCIUM 7.4 mg/dL (8.5-10.1); CREATININE 0.8 mg/dL (0.6-1.3); MAGNESIUM 1.5 mg/dL (1.8-2.4)
[2020-06-22 12:00] VITALS: BP 104/77
[2020-06-22 16:00] VITALS: BP 107/87
[2020-06-22 20:00] VITALS: BP 152/54
[2020-06-23 01:00] VITALS: BP 158/99
[2020-06-23 04:00] VITALS: BP 153/75
[2020-06-23 04:32] LABS: HEMATOCRIT 24.4 % (37.0-47.0); HEMOGLOBIN 8.5 gm/dL (12.0-15.0); MCH 30.1 pg (26.0-34.0); MCHC 34.8 g/dL (28.0-37.0); MCV 86.6 fL (80.0-100.0); MPV 8.2 fl. (7.2-11.1); RBC 2.82 mil/uL (4.20-5.00); RDW-CV 17.1 % (10.5-14.5)
[2020-06-23 04:45] LABS: CALCIUM 7.6 mg/dL (8.5-10.1); POTASSIUM 3.9 mmol/L (3.5-5.1)
[2020-06-23 08:00] VITALS: BP 160/88
[2020-06-23 14:46] VITALS: BP 174/93
[2020-06-23 16:00] VITALS: BP 147/76
[2020-06-23 20:00] VITALS: BP 162/76
[2020-06-24 00:19] VITALS: BP 155/85
[2020-06-24 04:35] VITALS: BP 139/82
[2020-06-24 05:32] LABS: HEMATOCRIT 24.6 % (37.0-47.0); HEMOGLOBIN 8.5 gm/dL (12.0-15.0); MCH 30.2 pg (26.0-34.0); MCHC 34.4 g/dL (28.0-37.0); MCV 87.7 fL (80.0-100.0); MPV 8.1 fl. (7.2-11.1); RBC 2.8 mil/uL (4.20-5.00); RDW-CV 17.7 % (10.5-14.5); WBC 8.3 thou/uL (4.0-11.0)
[2020-06-24 05:54] LABS: ALBUMIN 2.2 g/dL (3.4-5.0); CALCIUM 7.7 mg/dL (8.5-10.1); MAGNESIUM 1.5 mg/dL (1.8-2.4); POTASSIUM 3.6 mmol/L (3.5-5.1); TOTAL BILIRUBIN 0.4 mg/dL (<0.1-1.0); TOTAL PROTEIN 5.6 g/dL (6.4-8.2)
[2020-06-24 08:00] VITALS: BP 136/80
[2020-06-24] MEDS ORDERED: MIRALAX17 GM PO (09:16)
[2020-06-24] MEDS ORDERED: DULCOLAX5 MG PO (09:16)
[2020-06-24] MEDS ORDERED: MEGESTROL400 MG/11 PO (09:16)
[2020-06-24] MEDS ORDERED: CLOPIDOGREL75 MG PO (09:16)
[2020-06-24 20:00] VITALS: BP 136/68
[2020-06-25 00:09] VITALS: BP 163/67
[2020-06-25 08:00] VITALS: BP 149/77
[2020-06-25] MEDS ORDERED: LANTUS SC (08:53)
[2020-06-25 16:00] VITALS: BP 155/78
[2020-06-25 20:00] VITALS: BP 132/65
[2020-06-25 22:13] LABS: URINE BILIRUBIN NEGATIVE (Negative); URINE BLOOD NEGATIVE (Negative); URINE CLARITY CLEAR; URINE COLOR YELLOW; URINE GLUCOSE-RANDOM NEGATIVE (Negative); URINE KETONES NEGATIVE (Negative); URINE LEUKOCYTES-REFLEX NEGATIVE (Negative); URINE NITRITE-REFLEX NEGATIVE (Negative); URINE PROTEIN NEGATIVE (Negative); URINE SPECIFIC GRAVITY 1.015 (1.005-1.030); URINE UROBILINOGEN 0.2 E.U./dl (0.2-1.0)
[2020-06-26] VITALS: BP 129/63
[2020-06-26 04:00] VITALS: BP 161/74
[2020-06-26 08:00] VITALS: BP 146/87
[2020-06-26] MEDS ORDERED: LANTUS SUBQ (08:29)
[2020-06-26] MEDS ORDERED: HUMALOG100 UNIT/1 SUBQ (08:29)
[2020-06-26 11:30] VITALS: BP 127/85
--- NOTE | 2020-06-29 12:11 | CON ---
[address] [address] CONSULTATION Name: CHANTELLE BASSETT Room: [address] IN M.R.#: [id number] Admission: 06/17/20 Attend Phys: Alcon Julian MD Discharge: 06/26/20 Date of : 38 Report #: [id number] THIS REPORT FOR: //name// cc: KORTNEY Short family physician/PCP KORTNEY Short family physician/PCP ~ THIS REPORT FOR: //name// CC: Alcon Julian FAM physician/PCP DATE OF SERVICE: 06/17/2020 REASON FOR CONSULTATION: Melena and suspected GI bleed. HISTORY OF PRESENT ILLNESS: This is an 80-year-old female with recent history of CVA, who is currently in penitentiary. The patient was presented to the hospital after passing blood per rectum. Her hemoglobin is 11 which is pretty close to her baseline. The patient is a poor historian and cannot give me much history. We had performed a colonoscopy in 2017, which was significant for hemorrhoids. There is no evidence of hematemesis, nausea, vomiting. PAST MEDICAL HISTORY: Significant for history of CVA, dementia, diabetes mellitus type 2, hypertension, chronic anticoagulation therapy, gastroesophageal reflux disease, dyslipidemia. ALLERGIES: Please refer to MAR. MEDICATIONS: Please refer to MAR. SOCIAL HISTORY: The patient currently lives in a penitentiary due to recent CVA. She also has dementia. She is and her by bedside. There is no history of tobacco or alcohol use. FAMILY HISTORY: Noncontributory. PHYSICAL EXAMINATION: VITAL SIGNS: Reveals blood pressure of 135/83, respirations 18, pulse 79, temperature 36.5. LUNGS: Clear. CARDIOVASCULAR: Regular. ABDOMEN: Soft, nontender, nondistended. Bowel sounds are positive. NEUROLOGIC: The patient has slow responses most probably due to her CVA. LABORATORY DATA: Reveal WBC of 13.2, hemoglobin 11, platelet is 380. INR is 1.1. Sodium is 137, potassium 4.8, BUN is 71, creatinine 2.0. GFR is 24, glucose 134, calcium 8.9. Liver function tests [place] [address] CONSULTATION Name: CHANTELLE BASSETT [place] Room: [address]#: [id number] Admission: 06/17/20 Attend Phys: Alcon Julian MD Discharge: 06/26/20 Date of : 38 Report #: [id number] elevated alkaline phosphatase of 255. Albumin is 2.6, lipase 173. IMAGING: CT of abdomen and pelvis was obtained. There is no focal inflammatory mass, ascites or bowel obstruction. Large amount of retained stool within the colon with a large amount of retained stool within descending and rectum. ASSESSMENT AND PLAN: The patient with history of rectal bleeding and anemia, which is stable. We will consider upper endoscopy to rule out gastroduodenal ulcer. If this is negative, we will consider flex sigmoidoscopy. Note that the patient had a full colonoscopy in 2017 with known hemorrhoids. In reference to her constipation, we will put her on a bowel regimen. <ELECTRONICALLY SIGNED> By: Delvis Mejia MD 06/29/20 1211 1200 [id number] Mejia MD /nt
== END 2020-06-26 15:00 | DRG 377 ==
LOC: M.ERS 03:06 → M.2W 03:46 → M.TBA-ER 03:46 → M.2W 05:21
PROVIDERS: Family Medicine; Internal Medicine; Internal Medicine Gastroenterology; ADMIT Internal Medicine; ATTEND Internal Medicine
PROC: 0DB68ZX Excision of Stomach, Via Natural or Artificial Opening Endoscopic, Diagnostic (ICD-10-PCS; principal; 2020-06-17)
PROC: 30233N1 Transfusion of Nonautologous Red Blood Cells into Peripheral Vein, Percutaneous Approach (ICD-10-PCS; 2020-06-18)
PROC: 0DJD8ZZ Inspection of Lower Intestinal Tract, Via Natural or Artificial Opening Endoscopic (ICD-10-PCS; 2020-06-20)
DX: K92.2 Gastrointestinal hemorrhage, unspecified (principal); G93.41 Metabolic encephalopathy; N17.0 Acute kidney failure with tubular necrosis; K62.6 Ulcer of anus and rectum; I69.351 Hemiplegia and hemiparesis following cerebral infarction affecting right dominant side; K55.9 Vascular disorder of intestine, unspecified; G30.9 Alzheimer's disease, unspecified; F02.80 Dementia in other diseases classified elsewhere, unspecified severity, without behavioral disturbance, psychotic disturbance, mood disturbance, and anxiety; K21.9 Gastro-esophageal reflux disease without esophagitis; E78.5 Hyperlipidemia, unspecified; Z96.653 Presence of artificial knee joint, bilateral; D64.9 Anemia, unspecified; K57.31 Diverticulosis of large intestine without perforation or abscess with bleeding; N18.9 Chronic kidney disease, unspecified; K56.41 Fecal impaction; G47.33 Obstructive sleep apnea (adult) (pediatric); K64.9 Unspecified hemorrhoids; R93.3 Abnormal findings on diagnostic imaging of other parts of digestive tract; D12.6 Benign neoplasm of colon, unspecified; D13.1 Benign neoplasm of stomach; K44.9 Diaphragmatic hernia without obstruction or gangrene; D13.2 Benign neoplasm of duodenum; Z20.828 Contact with and (suspected) exposure to other viral communicable diseases; I12.9 Hypertensive chronic kidney disease with stage 1 through stage 4 chronic kidney disease, or unspecified chronic kidney disease; E11.22 Type 2 diabetes mellitus with diabetic chronic kidney disease; Z79.899 Other long term (current) drug therapy; Z79.4 Long term (current) use of insulin; Z79.82 Long term (current) use of aspirin; Z88.8 Allergy status to other drugs, medicaments and biological substances; Z79.01 Long term (current) use of anticoagulants